=== PATIENT | female | born 1990 | race American Indian/Alaskan Native ===

== ENCOUNTER 2018-03-27 04:02 | Inpatient (IN) | payer OTHER ==
[2018-03-27] MEDS ORDERED: LACTATED RINGERS 1,000 ML ONE (08:05)
[2018-03-27 08:50] LABS: Hematocrit 39.5 % (30.3-42.9); Hemoglobin 12.8 gm/dl (10.1-14.3); Mean Corpuscular HGB Conc 33 % (30-34); Mean Corpuscular Hemoglobin 28 pg (28-32); Mean Corpuscular Volume 85 fl (79-97); Platelet Count 345 K/mm3 (140-440); Red Blood Count 4.66 M/mm3 (3.65-5.03); Red Cell Distribution Width 16.1 % (13.2-15.2)
[2018-03-27] MEDS ORDERED: BRETHINE IVP PRN (09:00)
[2018-03-27] MEDS ORDERED: SUBLIMAZE IV PRN (09:00)
[2018-03-27] MEDS ORDERED: POLYCILLIN/NS 2 GM/100 ML 2 GM/100 ML BAG IV NR (09:00)
[2018-03-27] MEDS ORDERED: STADOL IV PRN (09:00)
[2018-03-27] MEDS ORDERED: BRETHINE SUB-Q PRN (09:00)
[2018-03-27] MEDS ORDERED: XYLOCAINE 2% INFILTRATI NR (09:00)
[2018-03-27] MEDS ORDERED: PITOCin/NS 30 UNIT/500ML 30 UNITS/500 ML BAG IV SCH (09:00)
[2018-03-27] MEDS ORDERED: MINERAL OIL PO PRN (09:00)
[2018-03-27] MEDS ORDERED: LACTATED RINGERS 1,000 ML IV SCH (09:00)
[2018-03-27] MEDS: PITOCin/NS 20 UNIT/1000ML DRIP 20 UNITS/1,000 ML BAG IV SCH ×2 (09:10→10:17)
[2018-03-27] MEDS ORDERED: XYLOCAINE MPF 2% ONE ×2 (09:17→09:20)
--- NOTE | 2018-03-27 09:42 | History and Physical Report ---
History of Present Illness Date of examination: 03/27/18 Date of admission: 03/27/18 04:03 Chief complaint: My water broke History of present illness: Patient is a 28 year old who presents at 38.3 weeks in active labor with SROM. Patient has had an uncomplicated course except for chronic vaginitis and yeast infections. Past History Past Medical History: no pertinent history Family/Genetic History: none Social history: - Obstetrical History Expected Date of Delivery: 04/07/18 Actual Gestation: 38 Week(s) 3 Day(s) : 3 Para: 0 Medications and Allergies Allergies Allergy/AdvReac Type Severity Reaction Status Date / Time No Known Allergies Allergy Verified 03/27/18 08:58 Active Meds: Active Medications Butorphanol Tartrate (Stadol) 2 mg IV Q2H PRN PRN Reason: Pain , Severe (7-10) Ephedrine Sulfate (Ephedrine Sulfate) 10 mg IV Q2M PRN PRN Reason: Hypotension Fentanyl (Sublimaze) 100 mcg IV Q2H PRN PRN Reason: Labor Pain Ampicillin Sodium (Polycillin/Ns 2 Gm/100 Ml) 2 gm in 100 mls @ 100 mls/hr IV ONCE NR; Protocol Stop: 03/27/18 11:00 Lactated Ringer's (Lactated Ringers) 1,000 mls @ 125 mls/hr IV DIRECT SARBJIT Oxytocin/Sodium Chloride (Pitocin/Ns 20 Unit/1000ml Drip) 20 units in 1,000 mls @ 125 mls/hr IV DIRECT SARBJIT Last Admin: 03/27/18 09:10 Dose: 125 mls/hr Oxytocin/Sodium Chloride (Pitocin/Ns 30 Unit/500ml) 30 units in 500 mls @ 1 mls /hr IV TITR SARBJIT; Protocol Lidocaine (Xylocaine 2%) 20 ml INFILTRATI ONCE NR Stop: 03/28/18 08:59 Mineral Oil (Mineral Oil) 30 ml PO QHS PRN PRN Reason: Constipation Terbutaline Sulfate (Brethine) 0.25 mg SUB-Q ONCE PRN PRN Reason: Hyperstimulation/Hypertonicity Terbutaline Sulfate (Brethine) 0.25 mg IVP ONCE PRN PRN Reason: Hyperstimulation/Hypertonicity Review of Systems All systems: negative Genitourinary: leakage of fluid, pelvic pain, contractions - Vital Signs Vital signs: Vital Signs Pulse BP 83 119/75 03/27/18 04:33 03/27/18 04:33 Temp Pulse Resp BP Pulse Ox 98.1 F 83 18 129/79 03/27/18 04:41 03/27/18 07:30 03/27/18 04:41 03/27/18 07:30 - Physical Exam Breasts: Positive: deferred Cardiovascular: Regular rate, Normal S1, Normal S2 Lungs: Positive: Clear to auscultation, Normal air movement Abdomen: Positive: normal appearance, soft, normal bowel sounds Genitourinary (Female): Positive: normal external genitalia, normal perenium Vagina: Positive: normal moisture Uterus: Positive: normal size Extremities: Positive: normal Deep Tendon Reflex Grade: Normal +2 - Obstetrical FHR: auscultation normal Cervical Dilatation: 3 Cervical Effacement Percentage: 70 station: -3 Uterine Contraction Frequency (min): 3-5 Uterine Contraction Pattern: Regular Uterine Contraction Intensity: Moderate Results Result Diagrams: 03/27/18 08:00 Abnormal lab results 03/27/18 Range/Units 08:00 RDW 16.1 H (13.2-15.2) % All other labs normal. Assessment and Plan IUP at 38.3 weeks in active labor. Admit for expectant management. Anticipate
--- NOTE | 2018-03-27 09:54 | Procedure Note ---
OB Delivery Note - Delivery Date of Delivery: 03/27/18 Surgeon: IFEANYI TRACEY Estimated blood loss: 300cc - Vaginal Delivery presentation: vertex Delivery position: OA Intrapartum events: precipitous labor- <3hr Delivery induction: none Delivery monitor: external FHT, external uterine Route of delivery: Delivery placenta: spontaneous Delivery cord: 3 umbilical vessels Delivery laceration: 2nd degree Delivery repair: vicryl Anesthesia: none Delivery comments: Viable female delivered over intact perineum precipitously at 0847. Apgars 8,9. Weight 6 pounds 6 ounces. Placenta delivered spontaneously and intact with 3vc. Second degree laceration repaired with lidocaine and 2.0 vicryl. Excellent hemostasis. Patient tolerated procedure well. NICU called to evaluate rle of infant which showed signs of swelling and discoloration. Extremity was moving well and had good pulses. - Infant A at 1 minute: 8 at 5 minutes: 9 Gender: Female
[2018-03-27] MEDS ORDERED: BENADRYL PO PRN (11:22)
[2018-03-27] MEDS ORDERED: DULCOLAX PR PRN (11:22)
[2018-03-27] MEDS ORDERED: LANSINOH TP PRN (11:22)
[2018-03-27] MEDS ORDERED: TYLENOL PO PRN (11:22)
[2018-03-27] MEDS ORDERED: ZOFRAN IV PRN (11:22)
[2018-03-27] MEDS ORDERED: PHENERGAN PR PRN (11:22)
[2018-03-27] MEDS ORDERED: TUCKS PAD TP PRN (11:22)
[2018-03-27] MEDS ORDERED: MILK OF MAGNESIA PO PRN (11:22)
[2018-03-27] MEDS ORDERED: SODIUM CHLORIDE FLUSH SYRINGE 10 ML IV SCH (11:22)
[2018-03-27] MEDS ORDERED: PHENERGAN PO PRN (11:22)
[2018-03-27] MEDS ORDERED: DERMOPLAST TP PRN (11:27)
[2018-03-27] MEDS: MOTRIN PO SCH ×2 (11:41→22:28)
[2018-03-27] MEDS: NORCO 5/325 PO PRN (12:44)
[2018-03-27] MEDS ORDERED: PRENATAL VITAMIN PO SCH (14:00)
[2018-03-27] MEDS ORDERED: COLACE PO SCH (22:00)
[2018-03-28] MEDS ORDERED: BOOSTRIX IM ONE ×2 (06:00→08:23)
--- NOTE | 2018-03-28 06:45 | Progress Note ---
Assessment and Plan PPD 1 s/p . Patient requesting discharge on today to go be with at [facility]. Will discharge on today. Follow up in office in 6 weeks. Patient advised to try to rest as much as possible. Subjective - Subjective Date of service: 03/28/18 Interval history: Patient is a 28 year old who presents at 38.3 weeks in active labor with SROM. Patient has had an uncomplicated course except for chronic vaginitis and yeast infections. Patient reports: appetite normal, voiding normally, pain well controlled, ambulating normally [place]: transported Objective - Vital Signs Latest vital signs: Vital Signs Temp Pulse Resp BP BP Pulse Ox 03/28/18 04:00 98.7 F 68 18 104/78 03/28/18 00:30 98.6 F 74 18 112/67 03/27/18 23:28 18 03/27/18 22:28 18 03/27/18 20:00 98.7 F 79 18 114/78 03/27/18 10:55 98.1 F 89 16 111/66 97 03/27/18 07:30 83 129/79 Intake and Output 03/27/18 03/27/18 03/28/18 14:59 22:59 06:59 Intake Total 139.583 300 Output Total 650 600 Balance -510.417 -300 Intake: IV 139.583 PITOCin/NS 20 UNIT/1000ML 139.583 DRIP 20 units In 1,000 ml @ 125 mls/hr IV DIRECT SARBJIT Rx#:[id number] Intake, Free Water 300 Output: Urine 650 600 Void 650 600 Other: Total, Output Amount 650 600 - Exam Cardiovascular: Present: Regular rate, Normal S1, Normal S2 Lungs: Present: Clear to auscultation, Normal air movement Abdomen: Present: normal appearance, soft, normal bowel sounds Uterus: Present: normal, firm, fundal height below umbilicus Extremities: Present: normal - Labs Labs: Abnormal lab results 03/27/18 Range/Units 08:00 RDW 16.1 H (13.2-15.2) %
[2018-03-28] MEDS: NORCO 5/325 PO PRN (06:46)
--- NOTE | 2018-03-28 06:49 | Discharge Summary ---
Providers - Providers Date of Admission: 03/27/18 04:03 Date of discharge: 03/28/18 Attending physician: IFEANYI TRACEY Primary care physician: IFEANYI TRACEY Hospitalization Reason for admission: active labor Delivery: Laceration: 2nd degree Other procedures: none complications: none Discharge diagnosis: IUP at term delivered baby: female Hospital course: unremarkable Condition at discharge: Good Disposition: DC-01 TO HOME OR SELFCARE Plan - Discharge Medications Prescriptions: HYDROcodone/ACETAMINOPHEN [[place] 5-325 Tablet] 1 each PO Q6HR #15 tablet Ibuprofen [Motrin] 800 mg PO Q8HR PRN #40 tablet PRN Reason: Pain, Mild (1-3) - Provider Discharge Summary Activity: routine, no sex for 6 weeks, no heavy lifting 4 weeks, no strenuous exercise Diet: routine Instructions: routine Additional instructions: [] Smoking cessation referral if applicable(refer to patient education folder for contact #) [] Refer to [facility] Booklet Call your doctor immediately for: * Fever > 100.5 * Heavy vaginal bleeding ( >1 pad per hour) * Severe persistent headache * Shortness of breath * Reddened, hot, painful area to leg or breast * Drainage or odor from incision. * Keep incision clean and dry at all times and follow doctor's instructions regarding bathing/showering - Follow up plan Follow up: IFEANYI TRACEY MD [Primary Care Provider] - 6 Weeks
[2018-03-28 09:34] VITALS: BP 104/69
== END 2018-03-28 09:20 | disposition home or self-care (01) | DRG 774 ==
LOC: TRG 04:02 → LD 04:03 → TRG 04:11 → OB 11:15
PROVIDERS: ADMIT Obstetrics & Gynecology; ATTEND Obstetrics & Gynecology
PROC: 3E0234Z Introduction of Serum, Toxoid and Vaccine into Muscle, Percutaneous Approach (ICD-10-PCS; principal; 2018-03-28)
PROC: 10E0XZZ Delivery of Products of Conception, External Approach (ICD-10-PCS; principal; 2018-03-28)
PROC: 0KQM0ZZ Repair Perineum Muscle, Open Approach (ICD-10-PCS; principal; 2018-03-28)
DX: O62.3 Precipitate labor (principal); O75.3 Other infection during labor; O70.1 Second degree perineal laceration during delivery; Z3A.38 38 weeks gestation of pregnancy; Z37.0 Single live birth; Z23 Encounter for immunization; O98.82 Other maternal infectious and parasitic diseases complicating childbirth; B37.9 Candidiasis, unspecified
CPT/HCPCS: 36415; 85014; 85018; 85027; 86592; 86850; 86900; 86901; 90715; 99211; G0463; J2590; J7120

== ENCOUNTER 2020-12-23 05:25 | Inpatient (IN) | payer MEDICAID, OTHER ==
[2020-12-23] MEDS ORDERED: BICITRA ORAL LIQD 30ML PO ONE (05:46)
[2020-12-23] MEDS ORDERED: METOCLOPRAMIDE 10 MG/2 ML INJ IV ONE (05:46)
[2020-12-23] MEDS ORDERED: FAMOTIDINE 20 MG/2 ML INJ IV ONE (05:46)
[2020-12-23] MEDS ORDERED: OXYTOCIN DRIP 30 UNITS/500 ML BAG IV SCH ×2 (06:00→12:18)
[2020-12-23] MEDS: LACTATED RINGERS 1,000 ML IV SCH ×2 (06:05→07:45)
[2020-12-23 06:32] LABS: Basophils % (Auto) 0.3 % (0.0-1.8); Eosinophils % (Auto) 0.1 % (0.0-4.3); Hemoglobin 11.9 gm/dl (10.1-14.3); Mean Corpuscular HGB Conc 33 % (30-34); Mean Corpuscular Volume 91 fl (79-97); Monocytes # (Auto) 0.7 K/mm3 (0.0-0.8); Monocytes % (Auto) 8.2 % (0.0-7.3); Platelet Count 206 K/mm3 (140-440); Red Blood Count 3.97 M/mm3 (3.65-5.03); Red Cell Distribution Width 16.5 % (13.2-15.2)
[2020-12-23] MEDS ORDERED: BUPIVACAINE/PF (0.5%) 5 MG/1 ML 30 ML VIAL INFILTRATI ONE (06:54)
[2020-12-23] MEDS ORDERED: KETOROLAC 30 MG/1 ML INJ ONE (06:54)
[2020-12-23] MEDS ORDERED: dexAMETHasone 20 MG/5 ML VIAL ONE (06:54)
[2020-12-23] MEDS ORDERED: ONDANSETRON 4 MG/2 ML INJ ONE (06:54)
[2020-12-23] MEDS ORDERED: ePHEDrine SULFATE 50 MG/1 ML INJ ONE (06:54)
[2020-12-23] MEDS ORDERED: PHENYLEPHRINE/NS 1,000 MCG/10 ML SYRINGE (OR USE) IV ONE (06:54)
--- NOTE | 2020-12-23 06:56 | Anesthesia Day of Surgery ---
Anesthesia Day of Surgery - Day of Surgery Patient Examined: Yes Patient H&P Reviewed: Yes Patient is NPO: Yes
--- NOTE | 2020-12-23 06:56 | Anesthesia Consultation ---
Anesthesia Consult and Med Hx Date of service: 12/23/20 - Airway Anesthetic Teeth Evaluation: Good ROM Head & Neck: Adequate Mental/Hyoid Distance: Adequate Mallampati Class: Class II Intubation Access Assessment: Probably Good - Pulmonary Exam CTA: Yes - Cardiac Exam Cardiac Exam: RRR - Pre-Operative Health Status ASA Pre-Surgery Classification: ASA2 Proposed Anesthetic Plan: Spinal - Pulmonary Hx Asthma: No COPD: No Hx Pneumonia: No - Cardiovascular System Hx Hypertension: No - Central Nervous System Hx Seizures: No Hx Psychiatric Problems: No - Endocrine Hx Renal Disease: No Hx End Stage Renal Disease: No Hx Hypothyroidism: No Hx Hyperthyroidism: No - Hematic Hx Anemia: Yes Hx Sickle Cell Disease: No - Other Systems Hx Alcohol Use: No
[2020-12-23] MEDS ORDERED: CARBOPROST TROMETHAMINE 250 MCG/1 ML INJ IM ONE (07:59)
[2020-12-23] MEDS ORDERED: METHYLERGONOVINE MALEATE 0.2 MG/ML VIAL IM ONE (07:59)
[2020-12-23] MEDS ORDERED: miSOPROStol 200 MCG TAB ONE (07:59)
--- NOTE | 2020-12-23 08:01 | History and Physical Report ---
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 Patient's course has been complicated by receiving intravenous IV IgG throughout her as well as being on steroids to the latter part of the . Refused culdocentesis which is why the regimen was performed as such. Aside from that patient's course has been relatively uncomplicated she has no issues with her blood pressure diabetes or any other problems. She is GBS positive. Past History Past Medical History: no pertinent history Past Surgical History: no surgical history [employer] History: herpes Social history: - Obstetrical History Expected Date of Delivery: 01/09/21 Actual Gestation: 37 Week(s) 4 Day(s) : 4 Para: 1 Number of Living Children: 1 Medications and Allergies Allergies Allergy/AdvReac Type Severity Reaction Status Date / Time No Known Allergies Allergy Verified 12/23/20 13:44 Home Medications Medication Instructions Recorded Confirmed Last Taken Type Vits96/Iron Fum/Folic 1 tab PO DAILY 03/27/18 12/23/20 12/22/20 09:00 History [ Tablet] HYDROcodone/ACETAMINOPHEN [Josephine 1 each PO Q6HR #15 tablet 03/28/18 12/23/20 Unknown Rx 5-325 Tablet] Ibuprofen [Motrin] 800 mg PO Q8HR PRN #40 tablet 03/28/18 12/23/20 Unknown Rx predniSONE 85 mg PO DAILY 12/23/20 12/23/20 12/22/20 09:00 History Active Meds: Active Medications Lactated Ringer's (Lactated Ringers) 1,000 mls @ 2,250 mls/hr IV PREOP SARBJIT Stop: 12/24/20 06:27 Last Admin: 12/23/20 07:45 Dose: 2,250 mls/hr Documented by: Oxytocin/Sodium Chloride (Pitocin/Ns 30 Unit/500ml) 30 units in 500 mls @ 0 mls/hr IV TITR SARBJIT; Protocol Review of Systems All systems: negative Constitutional: weight gain Gastrointestinal: abdominal pain Genitourinary: deferred, pelvic pain, contractions - Vital Signs Vital signs: Vital Signs Pulse BP Pulse Ox 95 H 131/93 97 12/23/20 06:12 12/23/20 06:12 12/23/20 06:12 Temp Pulse Resp BP Pulse Ox 98 F 89 18 133/91 98 12/23/20 06:13 12/23/20 06:47 12/23/20 06:13 12/23/20 06:30 12/23/20 06:47 - Physical Exam Breasts: Positive: deferred Cardiovascular: Regular rate, Normal S1, Normal S2 Lungs: Positive: Clear to auscultation Abdomen: Positive: normal appearance, soft, normal bowel sounds. Negative: distention, tenderness Genitourinary (Female): Positive: normal external genitalia, normal perenium Vulva: both: normal Vagina: Positive: normal moisture. Negative: discharge Cervix: Negative: lesion, discharge Uterus: Positive: normal size, normal contour Adnexa: both: normal Anus/Rectum: Positive: normal perianal skin, heme negative. Negative: rectal mass, hemorrhoids Extremities: Deep Tendon Reflex Grade: Normal +2 - Obstetrical FHR: auscultation normal Results Result Diagrams: 12/23/20 06:00 Abnormal lab results 12/23/20 12/23/20 Range/Units 06:00 06:00 RDW 16.5 H (13.2-15.2) % [place] % (Auto) 8.2 H (0.0-7.3) % Syphilis IgG Antibody Reactive A (NonReactive) All other labs normal. 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 At the advice of the perineum associates, the patient was advised not to proceed with a vaginal delivery. Patient is also having a bilateral tubal ligation. At this point we will proce ed with section patient understands the risks and benefits. All consents have been signed and placed on the chart.
[2020-12-23] MEDS ORDERED: ceFAZolin/STERILE WATER 2 GM/20 ML SYRINGE IV ONE (08:15)
[2020-12-23] MEDS ORDERED: SODIUM CHLORIDE 0.9% IRR 1,500 ML BOTTLE IR ONE (08:23)
[2020-12-23] MEDS ORDERED: WATER FOR IRRIG STERILE 1,500 ML BOTTLE IR ONE (08:23)
[2020-12-23] MEDS ORDERED: HYDROCORTISONE SOD SUCC 100 MG/2 ML VIAL ONE (09:00)
--- NOTE | 2020-12-23 09:31 | Procedure Note ---
OB Delivery Note - Delivery Date of Delivery: 12/23/20 Surgeon: IFEANYI TRACEY Estimated blood loss: 1000cc - Section Preop diagnosis: desires sterilization, other ( intolerance of labor) Postop diagnosis: same section procedure: primary low transverse, bilateral tubal ligation Disposition: PACU Complications: perineal laceration Narrative: see operative report - Infant A at 1 minute: 8 at 5 minutes: 9 Infant Gender: Female (2728grams/6 pounds)
--- NOTE | 2020-12-23 09:35 | Operative Report ---
Operative Report Operative Report: Preoperative diagnosis: Intrauterine at 37 and 2 7 weeks 2. History of alloimmune thrombocytopenia 3. Undesired fertility Postoperative diagnosis: Same Procedure: Primary low transverse section, Bilateral tubal ligation Surgeon: Dr. Pam Crocker EBL: 1000 cc Urine output: 75 mL IV fluids: 2000 mL Findings: Viable female in the vertex presentation. Weight 6 lbs. 0 oz. 2728 g Apgars 8 and 9. Otherwise normal pelvic anatomy Specimens: Portion of right and left fallopian tube Complications: None Procedure: The patient was admitted to the OR with IV running and in place. She was properly identified as herself. She was given spinal anesthesia in the OR without difficulty. She was placed in the dorsal supine position with a leftward tilt. A Dinh catheter was inserted. She was then prepped and draped in the normal sterile fashion. An Allis test was used to confirm adequate anesthesia. Once confirmed, the incision was made with the scalpel and carried to the underlying fascia using the scalpel and the Bovie. The fascia was incised in the midline and incision was extended bilaterally using the curved Sheth scissors. The fascia was then dissected from the underlying rectus muscles in a series of sharp and blunt dissection using the Sheth scissors. Muscles were in the in the midline sharply using Metzenbaum scissors and the peritoneum was entered into bluntly using the surgeon's fingers. A bladder blade was then placed into the incision to protect the bladder. Following this the bladder flap was created. Hysterotomy incision was then made in the scalpel. Upon uterine entry, the amniotic sac was ruptured for clear fluid. The was then delivered without difficulty. Her mouth and nose were suctioned on the field. The cord was clamped and cut and he was handed to the waiting NICU personnel. The uterus was then exteriorized and cleared of all clots and debris. The hysterotomy incision was then closed in a running locked fashion using 0 Vicryl. The abdomen was then copiously irrigated with warm normal saline. Attention was turned the the fallopian tubes. Each tube was identified and followed out the the fimbriated end. Each tube was grasped in the midportion and ligated in the Corrigan style Tubal ligation. Following this the uterus was replaced into the abdominal cavity. At this point the muscles were reapproximated in the midline using individual sutures of 0 Vicryl. Following this the fascia was closed in a running fashion using 0 Vicryl. Tissue was then copiously irrigated. Skin was closed in a running fashion using 3-[address] [facility] counts were correct 2. The patient tolerated the procedure well. She was taken to recovery in stable condition.
--- NOTE | 2020-12-23 10:45 | Progress Note ---
Regional Anesthesia Block - Regional Anesthesia Block Start Time: :40 Stop Time: :45 Performed By:: CARO GUILLERMO Procedure: U/S guided bilateral tap block performed for post-operative pain requested by Dr. Crocker. H&P & labs reviewed. Procedure explained, questions answered, consent obtained. Patient in the supine position with ekg, blood pressure cuff and pulse ox on and working in PACU. Timeout performed immediately before start of procedure. Probe placed in the mid-axillary line and the external oblique, internal oblique, and transverse abdominus muscles identified. Skin was cleansed with chlorahexadine 0.5% and allowed to dry. A 4" 20 G Edgar echogenic needle was advanced in plane until the tip was in the fascial plane between the internal oblique and the transverse abdominus. After negative aspiration 35 ml/side of [30 ml 0.5% Bupivacaine], [10 mg dexamethasone], and [40 ml sterile saline] was injected in 5 ml increments with negative aspiration in between. Patient tolerated procedure well. Obi FULLER
[2020-12-23] MEDS ORDERED: WITCH HAZEL/ GLYCERIN PAD TP PRN (12:18)
[2020-12-23] MEDS ORDERED: MORPHINE 4 MG/1 ML INJ IV PRN (12:18)
[2020-12-23] MEDS ORDERED: LANOLIN/ZINC/DIMETHICONE (LANSINOH) 7 GM TP PRN (12:18)
[2020-12-23] MEDS ORDERED: NALOXONE 0.4 MG/1 ML INJ IV PRN (12:18)
[2020-12-23] MEDS ORDERED: D5W/LACTATED RINGERS 1,000 ML IV SCH (12:18)
[2020-12-23 14:58] LABS: Hepatitis B Surface Antigen Non-Reactive (Negative); Hepatitis C Virus Antibody Non-Reactive (NonReactive)
[2020-12-23] MEDS: HYDROCORTISONE SOD SUCC 100 MG/2 ML VIAL IV SCH (15:28)
[2020-12-23] MEDS: oxyCODONE /ACETAMINOPHEN 5-325MG TAB PO PRN ×2 (17:58→22:28)
[2020-12-24 00:39] LABS: Hematocrit 27.9 % (30.3-42.9); Hemoglobin 9.4 gm/dl (10.1-14.3)
[2020-12-24] MEDS: HYDROCORTISONE SOD SUCC 100 MG/2 ML VIAL IV SCH ×4 (00:41→22:00)
[2020-12-24] MEDS: IBUPROFEN 800 MG TAB PO PRN ×3 (00:52→17:51)
[2020-12-24] MEDS: oxyCODONE /ACETAMINOPHEN 5-325MG TAB PO PRN ×3 (04:48→20:52)
--- NOTE | 2020-12-24 16:40 | Post Anesthesia Evaluation ---
- Post Anesthesia Evaluation Patient Participated: Yes Airway Patent: Yes Stable Respiratory Function: Yes Nausea/Vomiting: No Temp > 96.8F: Yes Pain Manageable: Yes Adequeate Hydration: Yes Anesthesia Complications: No Block Receding Appropriately: Yes Patient on Ventilator: No
--- NOTE | 2020-12-24 23:13 | Progress Note ---
Assessment and Plan POD 1 s/p ltcs. Doing well. Pt is tolerating po, ambulating and denies any nausea or vomiting. needs to stay in NICU for about one week secondary to thrombocytopenia. 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 Patient's course has been complicated by receiving intravenous IV IgG throughout her as well as being on steroids to the latter part of the . Refused culdocentesis which is why the regimen was performed as such. Aside from that patient's course has been relatively uncomplicated she has no issues with her blood pressure diabetes or any other problems. She is GBS positive. Pt is currently POD 1 s/p primary ltcs. Patient reports: appetite normal, voiding normally, pain well controlled [place]: in NICU Objective - Vital Signs Latest vital signs: Vital Signs Temp Pulse Resp BP BP Pulse Ox 12/24/20 17:51 16 12/24/20 16:12 97.9 F 87 20 127/85 96 12/24/20 12:44 16 12/24/20 10:02 18 12/24/20 06:59 97.9 F 67 16 137/88 96 12/24/20 04:25 98.0 F 63 20 134/63 100 12/24/20 00:32 97.4 F L 80 20 127/71 97 Intake and Output 12/24/20 12/24/20 12/25/20 14:59 22:59 06:59 Intake Total 880 200 Balance 880 200 Intake: Oral 880 200 Other: Total, Intake Amount 240 200 Voiding Method Toilet # Voids Void 1 1 - Exam Breasts: Present: deferred Cardiovascular: Present: Regular rate, Normal S1, Normal S2 Lungs: Present: Clear to auscultation, Normal air movement Abdomen: Present: normal appearance, soft, normal bowel sounds Uterus: Present: normal, firm, fundal height at umbilicus Extremities: Present: normal Incision: Present: normal, intact - Labs Labs: Abnormal lab results 12/24/20 Range/Units 00:20 Hgb 9.4 L (10.1-14.3) gm/dl Hct 27.9 L D (30.3-42.9) %
[2020-12-25] MEDS: oxyCODONE /ACETAMINOPHEN 5-325MG TAB PO PRN ×3 (05:10→21:08)
[2020-12-25] MEDS: HYDROCORTISONE SOD SUCC 100 MG/2 ML VIAL IV SCH ×2 (06:40→14:00)
[2020-12-25] MEDS: IBUPROFEN 800 MG TAB PO PRN (16:22)
--- NOTE | 2020-12-25 17:03 | Progress Note ---
Assessment and Plan POD 2 s/p ltcs.Doing well. Plan for discharge on tomorrow. 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 Patient's course has been complicated by receiving intravenous IV IgG throughout her as well as being on steroids to the latter part of the . Refused culdocentesis which is why the regimen was performed as such. Aside from that patient's course has been relatively uncomplicated she has no issues with her blood pressure diabetes or any other problems. She is GBS positive. Pt is currently POD 1 s/p primary ltcs. Patient reports: appetite normal, voiding normally, pain well controlled, flatus, ambulating normally : in NICU Objective - Vital Signs Latest vital signs: Vital Signs Temp Pulse Resp BP BP Pulse Ox 12/25/20 08:00 98.2 F 85 20 132/88 97 12/25/20 05:10 20 12/25/20 00:41 98.1 F 90 30 H 137/88 95 12/24/20 17:51 16 Intake and Output 12/25/20 12/25/20 12/25/20 06:59 14:59 22:59 Intake Total 720 Balance 720 Intake: Oral 720 Other: Total, Intake Amount 240 # Voids Void 1 - Exam Cardiovascular: Present: Regular rate, Normal S1, Normal S2 Lungs: Present: Clear to auscultation, Normal air movement Abdomen: Present: normal appearance, soft Extremities: Present: normal Incision: Present: normal, dry, intact
--- NOTE | 2020-12-25 17:04 | Discharge Summary ---
Providers - Providers Date of Admission: 12/23/20 05:25 Date of discharge: 12/26/20 Attending physician: IFEANYI TRACEY Primary care physician: IFEANYI TRACEY Hospitalization Reason for admission: section Delivery: Procedure: bilateral tubal ligation, primary low transverse Episiotomy: none Laceration: none Incision: normal, dry, intact Discharge diagnosis: IUP at term delivered [place] baby: female Condition at discharge: Good Disposition: DC-01 TO HOME OR SELFCARE Plan - Discharge Medications Prescriptions: Docusate Sodium [Colace] 100 mg PO BID #60 capsule predniSONE [Deltasone] 50 mg PO QDAY #14 tab Ferrous Sulfate [Feosol 325 MG tab] 325 mg PO BID #60 tablet Ibuprofen [Motrin] 800 mg PO Q8HR PRN #40 tablet PRN Reason: Pain, Mild (1-3) oxyCODONE /ACETAMINOPHEN [Percocet 5/325] 2 tab PO Q6HR PRN #40 tablet PRN Reason: Pain - Provider Discharge Summary Activity: routine, no sex for 6 weeks, no heavy lifting 4 weeks, no strenuous exercise Diet: routine Instructions: routine Additional instructions: [] Smoking cessation referral if applicable(refer to patient education folder for contact #) [] Refer to [facility] Booklet Call your doctor immediately for: * Fever > 100.5 * Heavy vaginal bleeding ( >1 pad per hour) * Severe persistent headache * Shortness of breath * Reddened, hot, painful area to leg or breast * Drainage or odor from incision. * Keep incision clean and dry at all times and follow doctor's instructions regarding bathing/showering - Follow up plan Follow up: IFEANYI TRACEY MD [Primary Care Provider] - 14 Days
[2020-12-26] MEDS: HYDROCORTISONE SOD SUCC 100 MG/2 ML VIAL IV SCH (01:41)
[2020-12-26] MEDS: IBUPROFEN 800 MG TAB PO PRN (01:48)
[2020-12-26] MEDS: oxyCODONE /ACETAMINOPHEN 5-325MG TAB PO PRN (08:36)
[2020-12-26 09:21] VITALS: BP 140/76
== END 2020-12-26 13:05 | disposition home or self-care (01) | DRG 765 ==
LOC: APU 05:25 → OB 11:51
PROVIDERS: ADMIT Obstetrics & Gynecology; ATTEND Obstetrics & Gynecology
PROC: 10D00Z1 Extraction of Products of Conception, Low, Open Approach (ICD-10-PCS; principal; 2020-12-23)
PROC: 0UB70ZZ Excision of Bilateral Fallopian Tubes, Open Approach (ICD-10-PCS; 2020-12-23)
PROC: 3E0T3BZ Introduction of Anesthetic Agent into Peripheral Nerves and Plexi, Percutaneous Approach (ICD-10-PCS; 2020-12-23)
DX: O99.824 Streptococcus B carrier state complicating childbirth (principal); O98.52 Other viral diseases complicating childbirth; Z3A.37 37 weeks gestation of pregnancy; Z20.822 Contact with and (suspected) exposure to COVID-19; A60.09 Herpesviral infection of other urogenital tract; Z37.0 Single live birth; Z30.2 Encounter for sterilization; O77.9 Labor and delivery complicated by fetal stress, unspecified
CPT/HCPCS: 36415; 80074; 85014; 85018; 85025; 86592; 86593; 86780; 86850; 86900; 86901; 87806; 88302; 99211; G0378; G0463; J0690; J1100; J1720; J1885; J2270; J2370; J2405; J2765; J3490; J7120; J7121; U0003